=== PATIENT | female | born 1950 | race Caucasian/White ===

== ENCOUNTER → 2017-08-02 | Outpatient (CLI) | payer OTHER ==
[~2017-08-02] MED LIST: LOSA50TA2 PO
== END ==
LOC: CFH 12:02
PROVIDERS: ATTEND Family Medicine
DX: N63.11 Unspecified lump in the right breast, upper outer quadrant (principal)
CPT/HCPCS: 77065

== ENCOUNTER 2017-11-17 15:29 | Emergency (ER) | payer OTHER ==
[~2017-11-17] VITALS: Ht 160 cm; Wt 88.6 kg
[2017-11-17] MEDS ORDERED: MECLIZINE CHEWABLE 25 MG TAB ONE (16:04)
[2017-11-17 16:17] LABS: BASOPHILS # (AUTO) 0.11 x10^3/uL (0-0.1); BASOPHILS % (AUTO) 1 % (0-1); EOSINOPHILS # (AUTO) 0.21 x10^3/uL (0-0.4); EOSINOPHILS % (AUTO) 2 % (1-7); LYMPHOCYTES # (AUTO) 2.12 x10^3/uL (1-3.4); LYMPHOCYTES % (AUTO) 18 % (22-44); MD NO; MEAN CORPUSCULAR HEMOGLOBIN 30.4 pg (27.0-34.8); MEAN CORPUSCULAR HGB CONC 33.5 g/dL (32.4-35.8); MEAN CORPUSCULAR VOLUME 90.8 fL (80-100); MEAN PLATELET VOLUME 8.3 fL (7.4-10.4); MONOCYTES # (AUTO) 0.38 x10^3/uL (0.2-0.8); MONOCYTES % (AUTO) 3 % (2-9); NEUTROPHILS % (AUTO) 77 % (42-75); PLATELET COUNT 243 x10^3/uL (130-400); RED BLOOD COUNT 5.12 x10^6/uL (3.82-5.3); RED CELL DISTRIBUTION WIDTH 13.5 % (9.6-15.2)
[2017-11-17 16:21] LABS: ALBUMIN 4.1 g/dL (3.4-5.0); ANION GAP 11 mmol/L (5-15); CALCIUM 9.8 mg/dL (8.5-10.1); CHLORIDE 104 mmol/L (98-107)
[2017-11-17 16:23] LABS: ALANINE AMINOTRANSFERASE 32 U/L (12-78); CREATININE 0.74 mg/dL (0.55-1.02)
[2017-11-17 16:28] LABS: ALKALINE PHOSPHATASE 112 U/L (45-117); BILIRUBIN,TOTAL 0.7 mg/dL (0.2-1.0); TOTAL PROTEIN 8.2 g/dL (6.4-8.2); TROPONIN I < 0.015 ng/mL (0.000-0.045)
[2017-11-17] MEDS ORDERED: MECLIZINE CHEWABLE 25 MG TAB PO ONE (16:30)
[2017-11-17 18:05] VITALS: BP 132/60
== END 2017-11-17 18:26 | disposition home or self-care (01) ==
LOC: ED 18:07
DX: R42 Dizziness and giddiness (principal); R11.2 Nausea with vomiting, unspecified; Z87.891 Personal history of nicotine dependence
CPT/HCPCS: 36415; 71045; 80053; 84484; 85025; 93005; 99285

== ENCOUNTER → 2018-05-09 | Outpatient (CLI) | payer OTHER | END | disposition home or self-care (01) | LOC: CFH 09:50 | PROVIDERS: ATTEND Family Medicine | DX: N63.10 Unspecified lump in the right breast, unspecified quadrant (principal) | CPT/HCPCS: 76641; 77065; G0279 ==

== ENCOUNTER 2019-01-16 11:53 | Outpatient (CLI) | payer OTHER ==
[2019-01-19] MEDS ORDERED: MIDAZOLAM 1 MG/ML, 2ML ONE (21:53)
[2019-01-19] MEDS ORDERED: FENTANYL PF 250 MCG/5ML ONE (21:53)
== END 2019-01-16 23:59 | disposition home or self-care (01) ==
LOC: CFH 11:53
PROVIDERS: ATTEND Family Medicine
DX: N63.10 Unspecified lump in the right breast, unspecified quadrant (principal); R92.2 Inconclusive mammogram
CPT/HCPCS: 76642; 77066; G0279; J2250; J3010

== ENCOUNTER → 2020-08-16 | Outpatient (CLI) | payer OTHER | END | disposition home or self-care (01) | LOC: CFH 09:51 | PROVIDERS: ATTEND Internal Medicine | DX: Z13.6 Encounter for screening for cardiovascular disorders (principal); Z13.29 Encounter for screening for other suspected endocrine disorder; N63.10 Unspecified lump in the right breast, unspecified quadrant; N64.59 Other signs and symptoms in breast; N95.8 Other specified menopausal and perimenopausal disorders; N64.9 Disorder of breast, unspecified; E78.00 Pure hypercholesterolemia, unspecified; M85.80 Other specified disorders of bone density and structure, unspecified site; N60.02 Solitary cyst of left breast; N60.01 Solitary cyst of right breast; Z82.49 Family history of ischemic heart disease and other diseases of the circulatory system | CPT/HCPCS: 75571; 76642; 77062; 77080; 77066; G0279 ==

== ENCOUNTER 2020-10-29 07:29 | Outpatient (CLI) | payer OTHER | END 2020-10-29 23:59 | disposition home or self-care (01) | LOC: CFH 07:29 | PROVIDERS: ATTEND Internal Medicine Cardiovascular Disease | DX: I08.0 Rheumatic disorders of both mitral and aortic valves (principal); I25.10 Atherosclerotic heart disease of native coronary artery without angina pectoris | CPT/HCPCS: 93306 ==

== ENCOUNTER 2020-11-15 07:32 | Outpatient (CLI) | payer OTHER | END 2020-11-15 23:59 | disposition home or self-care (01) | LOC: CFH 07:32 | PROVIDERS: ATTEND Internal Medicine Cardiovascular Disease | DX: I25.10 Atherosclerotic heart disease of native coronary artery without angina pectoris (principal) | CPT/HCPCS: 78452; 93017; A9502 ==